=== PATIENT | female | born 1985 | race Caucasian/White ===

== ENCOUNTER 2017-01-10 08:48 | Inpatient (IN) | payer BC ==
[2017-01-10] VITALS (24 sets, daily range): BP systolic 91–123; BP diastolic 53–79; PULSE 62–86; TEMP 97.4–98.8
[~2017-01-10] VITALS: Ht 165.1 cm; Wt 81.8 kg
[~2017-01-10 08:48] MED LIST: MOTRIN 600600 MG/TAB PO; PERCOCET 325 MG1 TA2 PO
[2017-01-10 11:17] LABS: MEAN CELL VOLUME 91 fl (80.0-100.0); MEAN CORPUSCULAR HGB CONC 33 g/dl (33.0-37.0); MEAN PLATELET VOLUME 10.2 fl (7.4-10.4); PLATELET COUNT 242 K/mm3 (130-400); RED BLOOD COUNT 3.66 M/mm3 (4.10-5.30); REDCELL DISTRIBUTION WIDTH-CV 13.7 % (11.5-14.5); WHITE BLOOD COUNT 10.8 K/mm3 (4.8-10.8)
[2017-01-10 11:22] LABS: ADD PATHOLOGY DIFF REVIEW NO; HEMATOCRIT 33.4 % (37.0-47.0); HEMOGLOBIN 11.1 g/dl (12.5-16.0); MEAN CORPUSCULAR HEMOGLOBIN 30 pg (27.0-31.0)
[2017-01-10 12:01] LABS: BAND 10 % (0-10); EOSINOPHIL 1 % (0-4); MYELOCYTE 3 % (0-0); NEUTROPHILS 67 % (42.0-75.2); PLATELET ESTIMATE NORMAL (NORMAL); TOTAL CELLS COUNTED 100
[2017-01-10] MEDS ORDERED: PRENATAL (14:32)
[2017-01-10] MEDS ORDERED: PROTONIX 40MG T40 MG PO (14:32)
[2017-01-10] MEDS ORDERED: NATURAL IRON65 MG (14:33)
[2017-01-11 00:10] VITALS: BP 109/59; PULSE 73; TEMP 97.7
[2017-01-11 04:40] VITALS: BP 92/56; PULSE 77; TEMP 97.8
[2017-01-11 07:00] VITALS: BP 104/68; PULSE 68; TEMP 97.2
[2017-01-11] MEDS ORDERED: MOTRIN 600600 MG/TAB PO (08:41)
[2017-01-11] MEDS ORDERED: PERCOCET 325 MG1 TA2 PO (08:41)
[2017-01-11 16:31] VITALS: BP 108/58; PULSE 65; TEMP 97.2
[2017-01-11 19:30] VITALS: BP 100/55; PULSE 62; TEMP 97.8
== END 2017-01-11 20:00 | disposition home or self-care (01) | DRG 775 ==
LOC: LDRO 08:48 → LDR 11:04 → OB 20:45
PROVIDERS: Obstetrics & Gynecology
PROC: 10E0XZZ Delivery of Products of Conception, External Approach (ICD-10-PCS; principal; 2017-01-10)
DX: O48.0 Post-term pregnancy (principal); O69.81X0 Labor and delivery complicated by cord around neck, without compression, not applicable or unspecified; Z3A.40 40 weeks gestation of pregnancy; Z37.0 Single live birth
CPT/HCPCS: J2590; J2795; J7120